=== PATIENT | male | born 1955 | race Caucasian/White ===

== ENCOUNTER 2017-05-08 07:42 | Day surgery (SDC) | payer BC ==
--- NOTE | 2017-04-25 14:26 | HP ---
DATE OF ADMISSION: 05/08/2017 HISTORY OF PRESENT ILLNESS: This is the second orthopedic outpatient admission for surgery for this 61-year- old male who is being scheduled for an arthroscopic surgery of the right knee. The patient had a history of right knee pain dating back to the . He then developed a sudden slip on the ice in March, causing pain and locking of the joint area. He was evaluated with MRI. He is found to have a torn medial meniscus, and with the continued locking problems, the patient has been scheduled for arthroscopic surgery of the right knee. Procedure has been outlined to him. He understands the operative procedure itself and has consented to it. ALLERGIES: Diclofenac. PAST MEDICAL HISTORY: The patient has been a relatively healthy 61-year-old male who does have a history of asthma. CURRENT MEDICATIONS: Breo as an inhaler. PAST SURGICAL HISTORY: Positive left knee surgery in 2017. No postoperative anesthesia problems. He has a negative bleeding history, negative blood clot history. SOCIAL HISTORY: He is a nonsmoker. Alcohol is very rare. PHYSICAL EXAMINATION: GENERAL: Examination today reveals a well-developed, well-nourished, 61-year- old male in moderate distress. HEAD, EYES, EARS, NOSE, AND THROAT: Normocephalic. NECK: Supple. CHEST: Clear. CARDIOVASCULAR: Regular rate. ABDOMEN: Soft. GENITOURINARY: Intact. EXTREMITIES: Examination of the right knee reveals active extension to -5 degrees, flexion to 120 degrees. Positive pain along the medial joint line area. Positive Rogelio examination, medial meniscus tear. RADIOGRAPHIC STUDIES: MRI dated 04/25/2017 reveals a positive medial meniscus tear. PLAN: Plan is for the patient to undergo arthroscopic surgery of the right knee and meniscus surgery. Procedure has been outlined to him. He understands it and has consented to it. MMODAL /[id number]
[~2017-05-08 07:42] MED LIST: Bupivacaine 0.5%/EPINEPHrine 1:200,000 50 ML MDV ONE; Dexamethasone 4 MG/ML SDV ONE; HYDROmorphone 1 MG/ML Syringe ONE; Ketorolac 30 MG/ML SDV ONE; Lactated Ringers 1,000 ML IV SCH; Lactated Ringers 1,000 ML ONE; Lidocaine 1% 4 ML ONE; Lidocaine 1%/Sod Bicarbonate in NS 8.4% 1 ML Syringe IDERM PRN; Midazolam 1 MG/ML 2 ML SDV ONE; Ondansetron 4 MG/2 ML SDV ONE; Propofol 200 MG/20 ML SDV ONE; Sodium Chloride 0.9% 10 ML Syringe FLUSH PRN; Sodium Chloride 0.9% 50 ML SDV ONE; ceFAZolin 1 GM Vial ONE; fentaNYL 250 MCG/5 ML SDV ONE
--- NOTE | 2017-05-08 08:04 | PCM.PREANE ---
Preanesthetic Assessment - Anesthesia/Transfusion/Family Hx Anesthesia History: Prior Anesthesia Without Reaction Family History of Anesthesia Reaction: No Transfusion History: No Prior Transfusion(s) Intubation History: Unknown - Review of Systems General: No Symptoms Pulmonary: No Symptoms (Asthma/MADELYN-CPAP/quit smokin-asthma is triggered by cold and dust.), Cough (morning PND from CPAP machine) Cardiovascular: No Symptoms, Dyspnea on Exertion Gastrointestinal: No Symptoms (Improved GERD-symptoms last noted 3 years ago.), Diarrhea (yesterday after flu shot.) Neurological: No Symptoms (vertigo/occasional motion sickness, patient denies PONV.) Other: Reports: None - Physical Assessment NPO Status Date: 05/07/17 NPO Status Time: 18:00 Pulse: 69 O2 Sat by Pulse Oximetry: 95 Respiratory Rate: 16 Blood Pressure: 152/84 Temperature: 36.6 C Height: 1.73 m Weight: 138 kg ASA Class: 2 Mental Status: Alert & Oriented x3 Airway Class: Mallampati = 3 Dentition: Reports: Normal Dentition, Caries Thyro-Mental Finger Breadths: 3 Mouth Opening Finger Breadths: 3 ROM/Head Extension: Full Lungs: Clear to Auscultation, Normal Respiratory Effort Cardiovascular: Regular Rate, Regular Rhythm, No Murmurs - Lab Values: All lab values reviewed and noted and within acceptable ranges to proceed with scheduled procedure. MRSA screen negative. - Imaging/EKG Impressions: EKG: SR rate= 64, Prolonged BRYANT, abnormal P wave progression. - Allergies Allergies/Adverse Reactions: Allergies Allergy/AdvReac Type Severity Reaction Status Date / Time diclofenac Allergy Hives Verified 05/07/17 10:20 - Anesthesia Plan Pre-Op Medication Ordered: None - Acknowledgements Anesthesia Type Planned: General Anesthesia Pt an Appropriate Candidate for the Planned Anesthesia: Yes Alternatives and Risks of Anesthesia Discussed w Pt/Guardian: Yes Pt/Guardian Understands and Agrees with Anesthesia Plan: Yes PreAnesthesia Questionnaire HEENT History: Reports: Impaired Vision Cardiovascular History: Reports: None Respiratory History: Reports: Sleep Apnea, SOB Gastrointestinal History: Reports: None Genitourinary History: Reports: None GATE SERVICES SUPERVISOR History: Reports: None Musculoskeletal History: Reports: Other (See Below) Other Musculoskeletal History: bilateral patellar malignment syndrome, quadriceps tightness, right knee pain, bilateral meniscus tears Neurological History: Reports: None Psychiatric History: Reports: None Endocrine/Metabolic History: Reports: None Hematologic History: Reports: None Immunologic History: Reports: None Oncologic (Cancer) History: Reports: None Dermatologic History: Reports: Other (See Below) Other Dermatologic History: rash - Past Surgical History Head Surgeries/Procedures: Reports: None HEENT Surgical History: Reports: Naso-Sinus Surgery, Tonsillectomy Cardiovascular Surgical History: Reports: None Respiratory Surgical History: Reports: None GI Surgical History: Reports: Colonoscopy Female Surgical History: Reports: None Male Surgical History: Reports: None Endocrine Surgical History: Reports: None Neurological Surgical History: Reports: None Musculoskeletal Surgical History: Reports: Arthroscopic Knee Oncologic Surgical History: Reports: None - Past Imaging History Past Imaging History: Reports: None - SUBSTANCE USE Smoking Status *Q: Former Smoker Recreational Drug Use History: No - HOME MEDS Home Medications: Home Meds Fluticasone/Vilanterol [Breo Ellipta 100-25 MCG Inhalation Kit] 1 puff INH Q4H PRN 04/12/16 [History] Albuterol [Ventolin HFA] 1 - 2 puff INH Q4H PRN 05/07/17 [History] Multivitamin [Daily Gianna] 1 tab PO DAILY 05/07/17 [History] - CURRENT (IN HOUSE) MEDS Current Meds: Current Medications Lactated Ringer's (Ringers, Lactated) 1,000 mls @ 125 mls/hr IV ASDIRECTED SHONDA Lidocaine/Sodium Bicarbonate (Buffered Lidocaine 1% In Ns 8.4%) 0.25 ml IDERM ONETIME PRN PRN Reason: Prior to IV Start Sodium Chloride (Saline Flush) 10 ml FLUSH ASDIRECTED PRN PRN Reason: Keep Vein Open Discontinued Medications Bupivacaine HCl/Epinephrine Bitart (Marcaine 0.5%/Epinephrine 1:200,000) Confirm Administered Dose 50 ml .ROUTE .STK-MED ONE Stop: 05/08/17 07:42 Cefazolin Sodium (Ancef) Confirm Administered Dose 2 gm .ROUTE .STK-MED ONE Stop: 05/08/17 07:38 Dexamethasone (Dexamethasone) Confirm Administered Dose 8 mg .ROUTE .STK-MED ONE Stop: 05/08/17 07:38 Fentanyl (Sublimaze) Confirm Administered Dose 250 mcg .ROUTE .STK-MED ONE Stop: 05/08/17 07:40 Hydromorphone HCl (Dilaudid) Confirm Administered Dose 1 mg .ROUTE .STK-MED ONE Stop: 05/08/17 07:39 Lidocaine HCl (Xylocaine-Mpf 1%) Confirm Administered Dose 4 mls @ as directed .ROUTE .STK-MED ONE Stop: 05/08/17 07:38 Lactated Ringer's (Ringers, Lactated) Confirm Administered Dose 1,000 mls @ as directed .ROUTE .STK-MED ONE Stop: 05/08/17 07:38 Ketorolac Tromethamine (Toradol) Confirm Administered Dose 30 mg .ROUTE .STK- MED ONE Stop: 05/08/17 07:38 Midazolam HCl (Versed 1 Mg/Ml) Confirm Administered Dose 2 mg .ROUTE .STK-MED ONE Stop: 05/08/17 07:39 Ondansetron HCl (Zofran) Confirm Administered Dose 4 mg .ROUTE .STK-MED ONE Stop: 05/08/17 07:38 Propofol (Diprivan 20 Ml) Confirm Administered Dose 200 mg .ROUTE .STK-MED ONE Stop: 05/08/17 07:39 Sodium Chloride (Normal Saline) Confirm Administered Dose 100 ml .ROUTE .STK- MED ONE Stop: 05/08/17 07:42
[2017-05-08] MEDS ORDERED: EPINEPHrine 1 MG/ML SDV ONE ×2 (08:07)
[2017-05-08] MEDS ORDERED: EPINEPHrine 1 MG/ML 30 ML MDV SCH (08:21)
[2017-05-08] MEDS ORDERED: Acetaminophen/oxyCODONE 325-5 MG Tab PO PRN (08:59)
[2017-05-08] MEDS ORDERED: Ondansetron 4 MG/2 ML SDV IVPUSH PRN ×2 (08:59→09:25)
[2017-05-08] MEDS ORDERED: Ketorolac 15 MG/ML SDV IVPUSH PRN (08:59)
[2017-05-08] MEDS ORDERED: Morphine 15 MG Tab.ER PO SCH (09:00)
[2017-05-08] MEDS ORDERED: Propofol 200 MG/20 ML SDV ONE (09:14)
[2017-05-08] MEDS ORDERED: fentaNYL 100 MCG/2 ML SDV IVPUSH PRN (09:25)
[2017-05-08] MEDS ORDERED: Albuterol 0.083% 2.5 MG/3 ML Neb Soln NEB PRN (09:25)
[2017-05-08] MEDS ORDERED: diphenhydrAMINE 50 MG/ML SDV IVPUSH PRN (09:25)
[2017-05-08] MEDS ORDERED: ePHEDrine 50 MG/ML SDV IVPUSH PRN (09:25)
[2017-05-08] MEDS ORDERED: Albuterol 6.7 GM Inhaler INH ONE (09:25)
[2017-05-08] MEDS ORDERED: ePHEDrine 50 MG/ML SDV ONE (09:26)
[2017-05-08] MEDS ORDERED: Phenylephrine 1 MG in Sodium Chloride 0.9% 10 ML IV SCH (09:30)
--- NOTE | 2017-05-08 11:00 | PCM.POSTAN ---
POST ANESTHESIA ASSESSMENT - MENTAL STATUS Mental Status: Alert - VITAL SIGNS Pulse Rate: 90 SaO2: 91 (2LPM nasal cannula.) Resp Rate: 12 Blood Pressure: 127/78 Temperature: 36.8 C - RESPIRATORY Respiratory Status: Respiratory Rate WNL, Airway Patent, O2 Saturation Stable, Supplemental Oxygen - CARDIOVASCULAR CV Status: Pulse Rate WNL, Blood Pressure Stable - GASTROINTESTINAL GI Status: No Symptoms - POST OP HYDRATION Hydration Status: Adequate & Stable
[2017-05-08 13:41] VITALS: BP 138/73
--- NOTE | 2017-05-08 15:26 | OR ---
DATE OF OPERATION: 05/08/2017 SURGEON: Leonel Martin MD PREOPERATIVE DIAGNOSIS: 1. Degenerative tearing of medial meniscus, right knee. 2. Osteochondrosis of medial femoral condyle, intercondylar notch, right knee. 3. Chondromalacia patellae, right knee moderate. 4. Ligamentum mucosum, right knee. ANESTHESIA: General. OPERATION PERFORMED: 1. Arthroscopic debridement and chondroplasty of the medial femoral condyle, intercondylar notch, and patella. 2. Arthroscopic removal of fibrous adhesion along with ligamentum mucosum and anterior fibrous scarring of right knee. 3. Arthroscopic partial medial meniscectomy. DESCRIPTION OF PROCEDURE: The patient was taken to the operative room in a supine position. He was placed under a general anesthesia. The right leg was prepped and draped in a standard fashion. Operation began with 2-portal incision being used, medial and lateral. Arthroscope was introduced to the lateral compartment and then evaluated the medial compartment, where the meniscus could be seen. There was significant anterior fat pad hypertrophy with fibrous scarring, which was excised along with ligamentum mucosum. The anterior cruciate ligament was exposed, and this was found to be intact; although, there was some degeneration noted. The medial compartment showed chondrosis of the medial femoral condyle, almost entire condyle. A chondroplasty was carried out. The meniscus itself was probed and was found to have degenerative tearing of posterior horn and then a tear in the central area that was flipped under the meniscus and lodged in the gutter to the medial side. This portion of the meniscus was removed. The remaining portion of the meniscus was then trimmed smoothed until a nice firm foundation was obtained. This was probed with a nerve hook from the posterior anteriorly. It was found to be secure. The operation proceeded with evaluation of the lateral compartment. The lateral meniscus was intact. It was probed from the posterior horn anteriorly. The condylar surfaces were intact. In the suprapatellar area, the patella was central with positive chondromalacia of moderate intensity and also there was significant chondromalacia of the intercondylar notch of the right femur. Chondroplasty was then carried out on both the patella and the intercondylar notch. There were also fibrous adhesions along the lateral side of the joint, which were removed. Then, the operation proceeded with final inspection and irrigation of the joint area. All 3 compartments were found to be stable and intact. The operation then proceeded with closure of the skin with 3-0 Prolene interrupted. The patient was then placed in a Branch dressing. He tolerated this whole procedure well. He left the operating room in a stable condition to his room for recovery. POSTOPERATIVE DIAGNOSIS: ESTIMATED BLOOD LOSS: MMODAL /[id number]
== END 2017-05-08 13:35 | disposition home or self-care (01) ==
LOC: JD.SDS 07:42
PROVIDERS: ATTEND Specialist
DX: S83.241A Other tear of medial meniscus, current injury, right knee, initial encounter (principal); M22.41 Chondromalacia patellae, right knee; M93.961 Osteochondropathy, unspecified, right lower leg; J45.909 Unspecified asthma, uncomplicated; G47.30 Sleep apnea, unspecified; Z88.6 Allergy status to analgesic agent; Z87.891 Personal history of nicotine dependence; Z79.899 Other long term (current) drug therapy; Z98.890 Other specified postprocedural states
CPT/HCPCS: 29881; 89050; 93005; 94640; A9270; J0171; J0690; J1100; J1170; J2250; J2405; J3010; J7120; J1885; J2704

== ENCOUNTER 2020-01-14 05:53 | Day surgery (SDC) | payer BC ==
--- NOTE | 2020-01-13 11:51 | PCM.PREANE ---
Preanesthetic Assessment - Procedure Proposed Procedure: Right Total Knee Arthroplasty - Anesthesia/Transfusion/Family Hx Anesthesia History: Prior Anesthesia Without Reaction Family History of Anesthesia Reaction: No Transfusion History: No Prior Transfusion(s) Intubation History: Unknown - Review of Systems General: No Symptoms Pulmonary: No Symptoms (MADELYN with CPAP, Asthma/Former smoker 1-2 ppd times 15 years.(quit 2001),ETOH: occasionally) Cardiovascular: No Symptoms (HTN) Gastrointestinal: No Symptoms (GERD), Difficulty Swallowing (dyphagia noted since palatoplasty) Neurological: No Symptoms (Vertigo, motion sickness, severe arthritis in the back ), Headache (Headaches) Other: Reports: Thyroid Problems (Hypothyroid), Neck Pain - Physical Assessment NPO Status Date: 01/13/20 NPO Status Time: 18:00 Vital Signs: HR:75 Sat:97% Temp:98.2 Resp:16 B/P:149/84 Height: 1.73 m Weight: 134 kg ASA Class: 3 Mental Status: Alert & Oriented x3 Airway Class: Mallampati = 3 Dentition: Reports: Normal Dentition, Caries Thyro-Mental Finger Breadths: 3 Mouth Opening Finger Breadths: 3 ROM/Head Extension: Full Lungs: Clear to Auscultation, Normal Respiratory Effort Cardiovascular: Regular Rate, Regular Rhythm, No Murmurs - Lab Values: Laboratory Last Values MRSA (PCR) Negative 12/30/19 15:36 All labs reviewed and noted and within acceptable ranges to proceed with scheduled procedure. - Imaging/EKG Impressions: EKG: SR rate= 64 - Allergies Allergies/Adverse Reactions: Allergies Allergy/AdvReac Type Severity Reaction Status Date / Time diclofenac Allergy Hives Verified 01/13/20 13:35 - Anesthesia Plan Pre-Op Medication Ordered: None (Albuterol premix in preoperative area @ 0614), Other (Preoperative Meds: lyrica, tylenol, oxycodone @ 0608) - Acknowledgements Anesthesia Type Planned: Spinal (Right Adductor Canal Block under US guidance for post operative pain control requested by Dr. Dia. ) Pt an Appropriate Candidate for the Planned Anesthesia: Yes Alternatives and Risks of Anesthesia Discussed w Pt/Guardian: Yes Pt/Guardian Understands and Agrees with Anesthesia Plan: Yes PreAnesthesia Questionnaire HEENT History: Reports: Impaired Vision Cardiovascular History: Reports: Other (See Below) Other Cardiovascular History: edema Respiratory History: Reports: Sleep Apnea, SOB Gastrointestinal History: Reports: None Genitourinary History: Reports: None QUALITY CHECKER History: Reports: None Musculoskeletal History: Reports: Other (See Below) Other Musculoskeletal History: bilateral patellar malignment syndrome, quadriceps tightness, right knee pain, bilateral meniscus tears Neurological History: Reports: Vertigo Psychiatric History: Reports: None Endocrine/Metabolic History: Reports: Other (See Below) Other Endocrine/Metabolic History: elevated TSH Hematologic History: Reports: None Immunologic History: Reports: None Oncologic (Cancer) History: Reports: None Dermatologic History: Reports: Other (See Below) Other Dermatologic History: rash - Past Surgical History Head Surgeries/Procedures: Reports: None HEENT Surgical History: Reports: Adenoidectomy, Naso-Sinus Surgery, Tonsillectomy Cardiovascular Surgical History: Reports: None Respiratory Surgical History: Reports: None GI Surgical History: Reports: Colonoscopy Female Surgical History: Reports: None Male Surgical History: Reports: None Endocrine Surgical History: Reports: None Neurological Surgical History: Reports: None Musculoskeletal Surgical History: Reports: Arthroscopic Knee Oncologic Surgical History: Reports: None Dermatological Surgical History: Reports: None - Past Imaging History Past Imaging History: Reports: None - HOME MEDS Home Medications: Home Meds Albuterol [Ventolin HFA] 1 - 2 puff INH Q4H PRN 05/07/17 [History] Multivitamin [Daily Gianna] 1 tab PO DAILY 05/07/17 [History] hydroCHLOROthiazide [Hydrochlorothiazide] 12.5 mg PO DAILY 01/01/18 [History] Cholecalciferol (Vitamin D3) [Vitamin D3] 5,000 unit PO DAILY 01/13/20 [History] Fluticasone Propionate [Flonase] 1 dose INH DAILY PRN 01/13/20 [History] Fluticasone/Salmeterol [Advair 250-50] 1 puff INH BID 01/13/20 [History] Levothyroxine Sodium [Levoxyl] 137 mcg PO DAILY 01/13/20 [History] Montelukast [Singulair] 10 mg PO DAILY 01/13/20 [History] Multivitamin 1 tab PO DAILY 01/13/20 [History] Nabumetone [Relafen] 500 mg PO BID PRN 01/13/20 [History] - CURRENT (IN HOUSE) MEDS Current Meds: Current Medications Morphine Sulfate 8 mg/Epinephrine HCl 0.3 mg/Cefuroxime Sodium 750 mg/Ketorolac Tromethamine 30 mg/Sodium Chloride 7.9 ml 0 mg .XX ASDIRECTED PRN PRN Reason: Pain Lactated Ringer's (Ringers, Lactated) 1,000 mls @ 125 mls/hr IV ASDIRECTED SHONDA Stop: 01/14/20 23:00 Lidocaine/Sodium Bicarbonate (Buffered Lidocaine 1% In Ns 8.4%) 0.25 ml IDERM ONETIME PRN PRN Reason: Prior to IV Start Stop: 01/14/20 18:00 Sodium Chloride (Saline Flush) 10 ml FLUSH ASDIRECTED PRN PRN Reason: Keep Vein Open Stop: 01/14/20 18:00
[~2020-01-14 05:53] MED LIST changes: +Albuterol 0.083% 2.5 MG/3 ML Neb Soln NEB PRN; -Bupivacaine 0.5%/EPINEPHrine 1:200,000 50 ML MDV ONE; -Dexamethasone 4 MG/ML SDV ONE; +EPINEPHrine 1 MG/ML SDV ONE; -HYDROmorphone 1 MG/ML Syringe ONE; -Ketorolac 30 MG/ML SDV ONE; -Lactated Ringers 1,000 ML ONE; -Lidocaine 1% 4 ML ONE; -Midazolam 1 MG/ML 2 ML SDV ONE; -Ondansetron 4 MG/2 ML SDV ONE; -Propofol 200 MG/20 ML SDV ONE; +Ropivacaine 0.5% 5 MG/ML 30 ML SDV ONE; +Scopolamine 1.5 MG Transdermal Patch TRDERM PRN; -Sodium Chloride 0.9% 50 ML SDV ONE; -ceFAZolin 1 GM Vial ONE; -fentaNYL 250 MCG/5 ML SDV ONE
[2020-01-14] MEDS ORDERED: Dexamethasone 4 MG/ML 5 ML MDV ONE (06:04)
[2020-01-14] MEDS ORDERED: Lactated Ringers 2,000 ML ONE (06:04)
[2020-01-14] MEDS ORDERED: Ondansetron 4 MG/2 ML SDV ONE (06:04)
[2020-01-14] MEDS ORDERED: Lidocaine 1% 4 ML ONE (06:04)
[2020-01-14] MEDS ORDERED: ceFAZolin 1 GM Vial ONE (06:04)
[2020-01-14] MEDS ORDERED: Propofol 200 MG/20 ML SDV ONE (06:05)
[2020-01-14] MEDS ORDERED: fentaNYL 100 MCG/2 ML SDV ONE (06:05)
[2020-01-14] MEDS ORDERED: Midazolam 1 MG/ML 2 ML SDV ONE (06:06)
[2020-01-14] MEDS ORDERED: Acetaminophen 325 MG Tab PO SCH (06:07)
[2020-01-14] MEDS ORDERED: Ketamine 500 mg/10 ML MDV ONE (06:07)
[2020-01-14] MEDS ORDERED: oxyCODONE ER 10 MG TAB.ER PO SCH (06:08)
[2020-01-14] MEDS ORDERED: Pregabalin 25 MG Cap PO SCH (06:08)
[2020-01-14] MEDS ORDERED: Ketorolac 30 MG/ML SDV ONE (07:38)
[2020-01-14] MEDS ORDERED: fentaNYL 100 MCG/2 ML SDV IVPUSH PRN (07:41)
[2020-01-14] MEDS ORDERED: Ondansetron 4 MG/2 ML SDV IVPUSH PRN (07:41)
[2020-01-14] MEDS ORDERED: diphenhydrAMINE 50 MG/ML SDV IVPUSH PRN (07:41)
[2020-01-14] MEDS ORDERED: ePHEDrine 50 MG/ML SDV IVPUSH PRN (07:41)
[2020-01-14] MEDS ORDERED: Albuterol 0.083% 2.5 MG/3 ML Neb Soln NEB PRN (07:42)
[2020-01-14] MEDS ORDERED: HYDROmorphone 0.5 MG/0.5 ML Syringe IVPUSH PRN (07:42)
[2020-01-14] MEDS: Bupivacaine 0.25% 10 ML SDV ONE ×4 (08:00→08:35)
[2020-01-14] MEDS: Morphine 8 MG, EPINEPHrine 0.3 MG, Cefuroxime 750 MG, Ketorolac 30 MG, Sodium Chloride ... ONE ×10 (08:01→08:16)
[2020-01-14] MEDS: Vancomycin 1 GM SDV ONE ×2 (08:02→08:23)
[2020-01-14] MEDS: Triamcinolone Acetonide 40 MG/ML 1 ML SDV ONE ×2 (08:03→08:35)
--- NOTE | 2020-01-14 08:46 | PCM.POSTAN ---
POST ANESTHESIA ASSESSMENT - MENTAL STATUS Mental Status: Alert - VITAL SIGNS Vital Signs: Last Vital Signs Temp 98 01/14/20 06:00 Pulse 82 01/14/20 06:00 Resp 28 01/14/20 06:00 BP 128/63 01/14/20 06:00 Pulse Ox 93% 01/14/20 06:12 - RESPIRATORY Respiratory Status: Respiratory Rate WNL, Airway Patent, O2 Saturation Stable - CARDIOVASCULAR CV Status: Pulse Rate WNL, Blood Pressure Stable - GASTROINTESTINAL GI Status: No Symptoms - POST OP HYDRATION Hydration Status: Adequate & Stable
--- NOTE | 2020-01-14 08:52 | PCM.SN.2 ---
- Free Text/Narrative Note: Right selective femoral nerve block at the adductor canal for post-procedure pain control under US guidance requested by Dr. Dia. Time Out: 851 Start: 851 End: 899 Chart reviewed. Consent signed. Questions answered. Appropriate monitors applied. Time out performed. Right mid-shaft femur identified with ultrasound, scanning medially of femur, the femoral artery in the adductor canal visualized, and the femoral nerve located laterally to the artery. The skin was prepped lateral to the ultrasound probe with chlorahexadine times two. The 21ga 4 insulated block needle was inserted under direct ultrasound guidance into the adductor canal. 25mL of 0.5% ropivacaine with 1:200,000 epinephrine was injected circumferentially around the nerve with intermittent negative aspiration noted. Patient tolerated the procedure well. Sterile technique noted along with sterile gloves, mask, and sterile probe cover. See picture on progress note and vital signs on nurses notes. Block completed in PACU. Melina Mahoney CRNA
--- NOTE | 2020-01-14 10:05 | PCM48HPAN ---
Post Anesthesia Note - EVALUATION WITHIN 48HRS OF ANESTHETIC Vital Signs in Normal Range: Yes Patient Participated in Evaluation: Yes Respiratory Function Stable: Yes Airway Patent: Yes Cardiovascular Function Stable: Yes Hydration Status Stable: Yes Pain Control Satisfactory: Yes Nausea and Vomiting Control Satisfactory: Yes Mental Status Recovered: Yes Vital Signs: Last Vital Signs Temp 36.3 C 01/14/20 09:46 Pulse 72 01/14/20 09:46 Resp 12 01/14/20 09:46 BP 118/69 01/14/20 09:46 Pulse Ox 94 L 01/14/20 09:46
[2020-01-14] MEDS ORDERED: oxyCODONE 5 MG Tab PO SCH (11:35)
[2020-01-14] MEDS ORDERED: Cyclobenzaprine 10 MG Tab PO SCH (11:36)
[2020-01-14 12:06] VITALS: BP 147/76; PULSE 63
--- NOTE | 2020-01-15 15:47 | CR ---
PROCEDURE INFORMATION: Exam: XR Right Knee Exam date and time: 01/14/2020 8:55 AM Age: 64 years old Clinical indication: Condition or disease; Joint replacement status; Right; Patient HX: Post op films RT knee TECHNIQUE: Imaging protocol: XR Right knee. Views: 1 or 2 views. COMPARISON: CR Bone Length Scanogram, Knee 3V Rt, Knee Standing AP Bi 12/16/2019 10:16 AM FINDINGS: Bones/joints: A new right total knee arthroplasty is satisfactorily positioned without postoperative complication. Bone density is normal. Soft tissues: There is expected gas in the superficial anterior soft tissues and suprapatellar bursa. IMPRESSION: A new right total knee arthroplasty is satisfactorily positioned without postoperative complication. Thank you for allowing us to participate in the care of your patient. Dictated and Authenticated by: Yaron Morfin MD 01/14/2020 10:50 AM Central Time ([place] & [place]) JASWANT
--- NOTE | 2020-01-26 09:52 | PCM.OPNOTE ---
- General Post-Op/Procedure Note Date of Surgery/Procedure: 01/14/20 Operative Procedure(s): right total knee with left knee corticosteroid injection Pre Op Diagnosis: bilateral knee osteoarthrosis Post-Op Diagnosis: Same Anesthesia Technique: Local, MAC, Spinal Primary Surgeon: Ethan Dia Anesthesia Provider: Melina Mahoney Software Engineer Web Applications: Daniela Hunt Software Engineer Web Applications: Yoli Rivera EBL in mLs: 200 Complications: None Condition: Good Free Text/Narrative:: 6 5 35x10 9mm
--- NOTE | 2020-01-26 10:14 | OR ---
DATE OF OPERATION: 01/14/2020 SURGEON: Ethan Dia MD OPERATION PERFORMED: Right total knee arthroplasty with left knee corticosteroid injection. PREOPERATIVE DIAGNOSIS: Bilateral knee osteoarthrosis. POSTOPERATIVE DIAGNOSIS: Bilateral knee osteoarthrosis. ANESTHESIA: Local MAC with spinal. ANESTHESIA PROVIDER: Melina Mahoney CRNA ASSISTANTS: Daniela Hunt PA-C, and Yoli Rivera LPN. ESTIMATED BLOOD LOSS: 200 mL. COMPLICATIONS: None. CONDITION: Stable. IMPLANT: 1. Natalie size 6 press-fit CR femur. 2. [place]town size 5 press-fit tibial baseplate. 3. [place]town size 5, 9 mm CS polyethylene insert. 4. Natalie size 35 x 10 mm press-fit patella. DESCRIPTION OF PROCEDURE: The patient was identified in the preop holding area. Proper site was marked and identified by the surgeon. The patient was taken back to the operating theater. After adequate anesthesia, the patient's right lower extremity had a nonsterile tourniquet applied and it was sterilely prepped and draped in the usual sterile fashion. OR time-out was performed. The patient received 2 g IV Ancef. At this time, the right lower extremity was exsanguinated. Tourniquet was insufflated to 300 mmHg. Standard medial parapatellar incision was made. Medial parapatellar arthrotomy was created. Deep fibers of the MCL were raised and anterior fat pad was resected. At this time, attention was turned to the patella. Patella measured at 26, it was resected to a 16 for 35 x 10 mm patella. Drill holes were then drilled and found to be in adequate position. The drill was then drilled in the distal femur and the intramedullary distal femoral cutting guide was then placed. 8 mm was resected off the distal femur and was found to be an adequate resection. Sizing guide was placed. It was found to be a size 6 press-fit CR femur that was shown on the implant record at the beginning of this dictation. The drill holes were drilled for the epicondylar axis using Whitesides line and epicondyles as reference. At this time, the 4-in-1 cutting block was placed. An anterior posterior and anterior and posterior chamfer cuts were then completed. Attention was turned to the tibia. The posterior medial lateral retractors were placed. The extramedullary tibial guide was placed. It was placed in the old footprint of the ACL. It was aligned with the center of the ankle and 0 degrees of slope, 9 mm was then resected off the unaffected side. There was found to be an acceptable reduction. At this time, posterior osteophytes were removed along with medial and lateral meniscus. A trial implant was placed with a correct sized tibia that was mentioned at the beginning of the dictation. A Newtown size 5, 9 mm CS polyethylene insert was then placed. The patient's knee was brought through range of motion. The patella was tracking centrally and was stable to varus and valgus stress. Alignment was found to be roughly at 0 degrees. The tibia was stamped and drilled in proper rotation. The universal tibial base plate was impacted in place. Next, the [place]town size 6 press-fit CR femur impacted into place and the [place] size 5, 9 mm CS polyethylene insert was placed. The patient's knee was brought into full extension. The patella was then press-fit in place at this time. Tourniquet was deflated. One liter dilute Betadine solution was irrigated through the knee along with 3 L of pulse lavage irrigation with Ancef. Periarticular injection was then completed. The patient's knee was brought through a range of motion. Knee was found to be stable to varus valgus stress, the patella was tracking centrally with full range of motion. At this time, a #2 barbed suture was used for closure of the medial parapatellar arthrotomy. Topical tranexamic acid was placed. 2-0 Vicryl was used subcutaneously, Prineo was used for the skin. The patient tolerated the procedure well and was sent to the PACU in stable condition. MMMICKY /[id number] JASWANT
== END 2020-01-14 13:30 | disposition home or self-care (01) ==
LOC: JD.SDS 05:53
PROVIDERS: ATTEND Orthopaedic Surgery
DX: M17.0 Bilateral primary osteoarthritis of knee (principal); I10 Essential (primary) hypertension; J45.909 Unspecified asthma, uncomplicated; E03.9 Hypothyroidism, unspecified; G47.33 Obstructive sleep apnea (adult) (pediatric); G89.18 Other acute postprocedural pain; Z98.890 Other specified postprocedural states; Z79.890 Hormone replacement therapy; Z79.899 Other long term (current) drug therapy; Z87.891 Personal history of nicotine dependence; Z88.8 Allergy status to other drugs, medicaments and biological substances
CPT/HCPCS: 20610; 27447; 36415; 73560; 85730; 87641; 94640; 97116; 97161; 97165; A9270; C1776; J0171; J0690; J0697; J1100; J1885; J2001; J2250; J2270; J2405; J2704; J2795; J3010; J3301; J3370; J3490; J7120; 01402; 64450; J2370